=== PATIENT | female | born 1950 | race Caucasian/White ===

== ENCOUNTER 2023-02-07 15:10 | Emergency (ER) | payer BC, MEDICARE, SELFPAY ==
[2023-02-07 15:14] VITALS: BP 167/87; PULSE 93; RESP 16; TEMP 36.1; O2SAT 93; BMI 31.5
--- NOTE | 2023-02-07 15:14 | ED.FALL ---
HPI - Fall General Chief Complaint: Head Injury Stated Complaint: fall/ head injury Time Seen by Provider: 02/07/23 15:19 Source: patient Mode of arrival: ambulatory Limitations: no limitations History of Present Illness HPI Narrative: 72-year-old female previously healthy, not on any anticoagulation presents the ER after a trip and fall today at 11:00. Patient went to Urgent Care. She had a laceration over the right eye are eyebrow that was repaired. she was referred into the ER for imaging. Patient reports mild headache. She denies vomiting, dizziness,Neck pain, back pain, vision changes. Patient received tetanus shot prior to arrival. Related Data Allergies Allergy/AdvReac Type Severity Reaction Status Date / Time No Known Allergies Allergy Verified 02/07/23 15:14 Review of Systems Review of Systems: Yes all other systems are reviewed and are negative Constitutional: Constitutional: Reports no additional constitutional complaints, Denies body ache(s), Denies chills, Denies fever(s), Reports headache(s) and Denies weakness Eyes: Eyes: Reports no additional eye complaints and Denies change in vision ENT: Reports system reviewed and no additional complaints, except as documented, Denies dizziness, Reports headache(s), Denies nasal congestion, Denies nasal discharge and Denies neck pain Cardiovascular: Cardiovascular: Reports no additional cardiovascular complaints, Denies chest pain, Denies leg edema and Denies dyspnea Respiratory: Respiratory: Reports no additional respiratory complaints, Denies cough and Denies dyspnea Gastrointestinal: Gastrointestinal: Reports no additional gastrointestinal complaints, Denies abdominal pain, Denies diarrhea, Denies nausea and Denies vomiting Genitourinary: Genitourinary: Reports no additional female genitourinary complaints and Denies urinary incontinence Musculoskeletal: Musculoskeletal: Reports no additional musculoskeletal complaints, Denies back pain, Denies arthralgias, Denies joint swelling, Denies neck pain, Denies numbness and Denies tingling Integumentary/Breasts: Skin/Breast: Reports system reviewed and no additional complaints, except as docu and Denies rash Neurologic: Reports system reviewed and no additional complaints, except as documented, Denies Abnormal speech present, Denies dizziness, Reports headache(s), Denies numbness, Denies tingling and Denies weakness [facility] Past Medical History Attestation statement: The following information was validated with the patient. Source: old records reviewed and nursing notes reviewed Social History Social History Alcohol intake: never Smoked in Last 30 Days: No Use of substances other than those prescribed or required for medical reasons: No Advance Directives: No Advance Directives Information Provided: No Physical Exam Vital Signs: Vital Signs: Last Vital Signs Temp 97 F 02/07/23 15:14 Pulse 90 02/07/23 16:48 Resp 16 02/07/23 16:48 BP 134/80 02/07/23 16:48 Pulse Ox 96 02/07/23 16:48 O2 Del Method Room Air 02/07/23 16:48 BMI result Body Mass Index 31.5 Const: General: cooperative, healthy appearing, comfortable and no acute distress Orientation/consciousness: patient oriented x3 Limitations: no limitations HEENT: Head: Yes normal to inspection, No Vallejo's sign and No raccoon eyes Head images: 1. there is a 5 cm laceration above the right eyebrow. There is slight dehiscence of the wound Ears: hearing grossly normal bilaterally and TM's normal bilaterally General nose exam: Normal external nose present Face and sinus: Yes normal facial exam Mouth: Normal oral and palatal mucosa present Throat: Yes posterior oropharynx normal Eyes: General: appearance normal, both eyes and all related structures Pupils: Equal, round and reactive pupils present Neck: Other: No midline tenderness, step-offs deformities Neck: Yes normal visual inspection, Yes full ROM and Yes no lymphadenopathy Chest: Chest palpation & inspection: normal inspection of the chest Resp: Effort & Inspection: normal respiratory effort Auscultation: clear to auscultation bilaterally Cardio: Rate: regular rate Rhythm: regular rhythm Peripheral pulses: Peripheral pulses 2+ throughout GI: Inspection: Yes normal to inspection Palpation (GI): Soft to palpation and nontender Auscultation: normal bowel sounds Back/Spine/Pelvis: Thoracic/Lumbar Spine: thoracic and lumbar spine normal to inspection Skin: General skin exam: no rashes or lesions noted Neuro: General: patient oriented x3, moves all extremities, no focal motor deficits and normal sensation to monofilament Cranial nerves: Yes CN's II-XII intact bilaterally, Yes Equal, round and reactive pupils present, Yes Bilaterally intact EOM present, Yes Nystagmus not present, Yes Normal facial strength present and Yes Midline tongue present Cognition (Neuro): normal cognition Speech: No Abnormal speech present Gait exam (Neuro): Normal gait present Motor exam (neuro): 5/5 motor strength present throughout Sensory Exam: Normal double simultaneous stimulation for sensation Extrem: General: Yes normal to inspection Course Course Course Narrative: RME: 72yo F w/ no sig PMHx presenting to the ED c/o laceration to right upper eyebrow s/p mechanical trip and fall a grocery store around 11:00. Patient reports she fell in the rain, glasses hit face, denies LOC. Patient was seen at Urgent Care [employer] [employer] and had wound repaired, but was sent to ED for CT scans. Denies taking anticoagulation 3 cm linear laceration noted to right eyebrow, mostly closed however easily separable, appears internal suture was placed. Will need reinforcement Head/C-spine CT ordered Full HPI, ROS and PE to be performed by primary ED provider. Reevaluation(s) Reevaluation #1: CT head and cervical spine are negative for any acute finding. Patient will be discharged home with head injury instructions and return precautions. Reviewed worrisome signs and symptoms of when to return to the emergency room. Comfortable plan for discharge home. Medical Decision Making Medical Decision Making [facility] Narrative: this is a 72-year-old female who had a mechanical fall at 11:00 this morning with head strike. There was no loss of consciousness. She was seen at urgent care and had sutures placed but was referred here for imaging. Patient has complaints of mild headache within normal neurological exam and no focal findings. There is no history of FLORECITA therapy use. On exam patient has a approximately 5 cm laceration over the right eyebrow that has slight dehiscence noted. I did review the records from the urgent care. It appears that they placed 4.0 dissolvable sutures subcutaneously. I will reinforce the wound with skin glue and Steri-Strips patient will have a CT head and CT cervical spine due toage Differential Diagnosis Differential Diagnoses: The differential diagnosis associated with the presentation includes low concern for basilar skull fracture, intracranial hemorrhage Consider contusion, laceration, concussion Independent Interpretation I performed an independent interpretation of an: CT Scan Interpretation: I independently reviewed CT scan agree with radiology report Radiology Impression Discussion of test interpretation with radiology: I have reviewed the radiologist's reading. Radiologist Impression: [address] [address] [address] Scan Report Signed Patient: Nely Luciano MR#: [id number] : 1950 Acct:[id number] Age/Sex: 72 / F ADM Date: 02/07/23 Loc: HO.ED Attending Dr: Ordering Physician: Winter Castillo Date of Service: 02/07/23 Procedure(s): CT head/brain wo IV con Accession Number(s): [id number] cc: Winter Castillo~ EXAM: Noncontrast CT scan of the head and cervical spine. INDICATION: Fall with head strike COMPARISON: None available TECHNIQUE: Axial slices were obtained from skull base to vertex and displayed. This was followed by helical, multislice, multidetector axial images from the occiput to the upper thorax. Coronal and sagittal reformats of the cervical spine in addition to coronal reformats of the head were obtained at the technologist workstation. DLP: 1238 mGy-cm FINDINGS: HEAD: There is no evidence of acute intracranial hemorrhage or territorial infarction.? No abnormal mass effect or midline shift is appreciated. Gong-white differentiation is well preserved.? No extra-axial fluid collections. The ventricular system and cortical sulci are prominent, consistent with age-appropriate volume loss.? Mild cerebellar volume loss is also appreciated. There are areas of low density in the periventricular and subcortical white matter, most consistent with sequelae of microvascular ischemic change.? Hyperostosis frontalis. No acute osseous fracture. There is mild to moderate calcifications of the cavernous internal carotid arteries. Mild mucosal thickening of a few ethmoid air cells in addition to the maxillary sinuses. Other paranasal sinuses and mastoid air cells are well aerated. SPINE: There is reversal of the normal cervical lordosis. Also noted is mild anterolisthesis of C3 on C4 and C4 on C5. Normal C1/2 articulation. Cervical vertebral body heights are maintained. There is mild to moderate narrowing of the C5/6 and C6/7 disc space heights. Small to moderate-sized osteophytes are also present particularly within the mid to lower cervical spine. There are degenerative changes of the posterior elements of the mid to lower cervical spine. There is moderate bilateral facet hypertrophy diffusely. Visualized lung apices are well aerated. CT/CT head/brain wo IV con IMPRESSION: 1.? No acute intracranial pathology. 2.? No fractures or dislocations of the cervical spine. ? Discharge Plan Discharge Clinical Impression: Face lacerations Patient Disposition: Home, Self-Care Instructions: Laceration (ED), Skin Adhesive Care (ED), Steristrips (ED) Additional Instructions: tried to leave the Steri-Strips in place for few days the the wound may heal Return for severe headache, vomiting, change in behavior take Motrin or Tylenol if able as needed for pain Referrals: Physician,None [Primary Care Provider] - 1 week Interventions: ED Discharge Assessment Last Done: 02/07/23 16:48 Discharge Date/Time: 02/07/23 16:49
[2023-02-07 16:48] VITALS: BP 134/80; PULSE 90; RESP 16; O2SAT 96
== END 2023-02-07 16:49 | disposition home or self-care (01) ==
PROVIDERS: Emergency Provider Emergency Medicine Emergency Medical Services
DX: R51.9 Headache, unspecified (principal); S01.111A Laceration without foreign body of right eyelid and periocular area, initial encounter; W19.XXXA Unspecified fall, initial encounter; Y93.9 Activity, unspecified; Y92.9 Unspecified place or not applicable; Y99.9 Unspecified external cause status
CPT/HCPCS: 70450; 72125; 99284

== ENCOUNTER 2024-02-06 07:36 | Emergency (ER) | payer BC, SELFPAY ==
--- NOTE | ~2024-02-06 | XR_ITS ---
EXAMINATION: XR KNEE, LEFT CLINICAL INFORMATION: Knee pain COMPARISON: None available. TECHNIQUE: Four views of the left knee. FINDINGS: There is moderate narrowing of the medial joint space with marginal spurring. Moderate patellofemoral degenerative changes noted. Diffuse osteopenia. No fracture, dislocation or destructive lesion or joint effusion. XR/XR knee LT 2V IMPRESSION: Multi compartmental degenerative change but no acute findings.
[2024-02-06 07:39] VITALS: BP 178/85; PULSE 80; TEMP 36.8; O2SAT 97; BMI 31.8
--- NOTE | 2024-02-06 08:23 | ED_ITS ---
HPI - Extremity Injury (Lower) General Chief Complaint: Extremity Injury, Lower Stated Complaint: Fall/L knee inj Time Seen by Provider: 02/06/24 07:43 Source: patient Mode of arrival: ambulatory Limitations: no limitations History of Present Illness ED Provider: URBAN ZAMBRANO Narrative: 73 yo female who reports not on thinners and no sig PMH here with c/o falling onto L knee about 1 week ago no other trauma and now has pain with clicking and walking. No numbness, weakness. Has no PCP to see did not get xrays yet no prior injury to this knee MD complaint: knee injury Onset (ago): week(s) (1) Injury: Left: knee Type of Injury: blunt Place: home Severity: moderate Relieving factors: immobilization Exacerbating factors: other (walking) Context: direct blow Associated symptoms: swelling Other symptoms: none Related Data Previous Rx's ?Medication ?Instructions ?Recorded diclofenac sodium 1 % topical gel 2 g topical QID #100 grams 02/06/24 (Voltaren Arthritis Pain) Allergies Allergy/AdvReac Type Severity Reaction Status Date / Time No Known Allergies Allergy Verified 02/06/24 07:41 Review of Systems Review of Systems: Constitutional : No Fever, No Chills ENT/Mouth : No Ear Pain, No Hoarseness, No sore throat Eyes: No Eye Pain, No Swelling, No Redness, No Foreign Body Cardiovascular : No Chest Pain, No SOB Respiratory : No Cough, No Dyspnea Gastrointestinal : No Nausea, No Vomiting, No Diarrhea, No abdominal Pain Genitourinary : No Dysuria, No Hematuria Musculoskeletal : positive joint pain, No Myalgias, pos Joint Swelling Skin : No Skin lacerations, No rash Neuro : No Weakness, No Numbness, No Loss of Consciousness, No Dizziness, No Headache Psych : No Anxiety/Panic, No Depression All other systems reviewed and are negative PMFSH Past Medical History Attestation statement: The following information was validated with the patient. Source: old records reviewed Medical History No pertinent past medical history Social History Social History (Updated 02/06/24 @ 08:35 by Aleyda Acevedo DO) Alcohol intake: never Patient Tobacco Use Status: Never used Tobacco Advance Directives: Yes Advance Directives Information Provided: Yes Advance Directives on File: No Physical Exam Vital Signs: Vital Signs: Last Vital Signs Temp 98.3 F 02/06/24 07:39 Pulse 80 02/06/24 07:39 BP 178/85 H 02/06/24 07:39 Pulse Ox 97 02/06/24 07:39 O2 Del Method Room Air 02/06/24 07:39 BMI result Body Mass Index 31.8 Appearance: Alert. Oriented X3. No acute distress. Eyes: Pupils equal, round and reactive to light. ENT: Pharynx normal. Neck: Normal inspection. Neck supple. CVS: Normal heart rate and rhythm. Pulses normal. Respiratory: No respiratory distress. Breath sounds normal. Abdomen: Soft and nontender. Skin: Skin warm and dry. Normal skin color. Normal skin turgor. Extremities: No lower extremity edema. L knee small to mod joint effusion ttp anteriorly Neuro: Oriented X 3. No motor deficit. No sensory deficit. Medical Decision Making Medical Decision Making [facility] Narrative: 73 yo female with direct blow to L knee one week ago now with c/o pain with walking on that knee she has small effusion noted - at this time xrays for fracture ordered aware she will likely need MRI if fracture not noted - will refer to ortho she is NV intact Differential Diagnosis Differential Diagnoses: The differential diagnosis associated with the presentation includes internal injury, strain, fracture Lab Data [facility] Lab Attestation statement: I reviewed the patient's lab results. Independent Interpretation I performed an independent interpretation of an: Plain X-Ray Radiology Impression Discussion of test interpretation with radiology: I have reviewed the radiologist's reading. Prescription Management I considered prescription management with: Other Discharge Plan Discharge Clinical Impression: Effusion, left knee Left knee sprain Qualifiers: Encounter type: initial encounter Involved ligament of knee: unspecified ligament Qualified Code(s): S83.92XA - Sprain of unspecified site of left knee, initial encounter Patient Disposition: Home, Self-Care Instructions: Knee Sprain (ED), Swollen Knee Joint (ED) Additional Instructions: follow up with orthopedics you will most likely need MRI return for worsening pain swelling redness or any other concerns. FINDINGS: There is moderate narrowing of the medial joint space with marginal spurring. Moderate patellofemoral degenerative changes noted. Diffuse osteopenia. No fracture, dislocation or destructive lesion or joint effusion. XR/XR knee LT 2V IMPRESSION: Multi compartmental degenerative change but no acute findings Prescriptions: New diclofenac sodium [Voltaren Arthritis Pain] 1 % gel 2 g topical QID Qty: 100 0RF Rx Instructions: apply to single elbow, wrist or hand; for hand includes palm/fingers/back of hand Referrals: Luke Yu PA-C [Physician [employer]] - (call to schedule appointment) Print Language: Tristanian
[2024-02-06 09:43] VITALS: BP 153/85; PULSE 82; RESP 18; TEMP 37.1; O2SAT 98
== END 2024-02-06 09:45 | disposition home or self-care (01) ==
PROVIDERS: Emergency Provider Emergency Medicine
DX: M25.462 Effusion, left knee (principal); M25.562 Pain in left knee; S83.92XA Sprain of unspecified site of left knee, initial encounter; W18.30XA Fall on same level, unspecified, initial encounter; Y93.9 Activity, unspecified; Y92.9 Unspecified place or not applicable; Y99.9 Unspecified external cause status
CPT/HCPCS: 73560; 99282; 99283

== ENCOUNTER 2024-03-08 07:59 | Outpatient (AMB) | payer BC, SELFPAY ==
--- NOTE | 2024-03-08 08:09 | MHC.OFFVIS ---
Intake Visit Reasons: New Pt - left knee pain Intake Note: Nely a 74 year old female who presents today for a new patient evaluation of left knee pain. Patient reports her pain has been present for about a month ago that has been getting worse. Her pain started after she fell on her knee a the top of stairs. She presented to at [facility] where xrays were taken and referred to orthopedics. Currently her pain presents with ambulation and is located at the anterior aspect of knee. She complains of clicking with ambulation. Denies numbness or tingling. No relief with prescribed topical cream. Allergies No Known Allergies Allergy (Verified 03/08/24 08:09) Medication List - Last Reconciled 03/08/24 by Luke Yu PA-C diclofenac sodium 1% (Voltaren Arthritis Pain) 2 grams topical QID HPI HPI New Pt - left knee pain: Details: Nely is a 74-year-old female who presents today as a new patient for an evaluation of left knee pain. She states that a month ago, she started experiencing pain and stiffness, and it has been getting worse. She describes that she landed on her knee after falling from the top of the stairs. She has been experiencing pain with ambulation and is located at the anterior aspect of her left knee. After being evaluated at [facility], x-rays were done and referred to the orthopedics. She finds no relief with prescribed topical cream. She denies numbness or tingling. [facility] Medical History No pertinent past medical history Social History Alcohol intake: never Patient Tobacco Use Status: Never used Tobacco Review of Systems Const All systems reviewed & are unremarkable except as noted in HPI and below Physical Exam Const General: cooperative, healthy appearing, comfortable and no acute distress Orientation/consciousness: patient oriented x3 Neck Neck: Yes normal visual inspection and Yes no JVD Chest Chest palpation & inspection: normal inspection of the chest Resp Effort & Inspection: normal respiratory effort Auscultation: clear to auscultation bilaterally, crackles (no), rales (no), rhonchi (no) and wheezes (no) Cardio Jugular venous distension: no JVD Rate: regular rate Rhythm: regular rhythm Heart sounds: S1 normal heart sound present, S2 normal heart sound present, Murmur heart sound present (no) and Rub heart sound present (no) Neuro General: patient oriented x3 Extrem Other: Left knee: Skin intact, no erythema or joint effusion. Tenderness along the medial and lateral joint line. Full ROM with crepitus. Negative Rowena?s. No ligamentous laxity. NVI. General: Yes normal to inspection, Yes no pedal edema and Yes no calf tenderness Psych Appearance: grossly normal Mental Status: mental status grossly normal Speech and movement: Normal speech and movement present Office Procedures Joint Injection/Aspiration Joint Injection/Aspiration Primary Site: left knee Prep: site was prepped using aseptic technique, ethochloride spray was applied and injection warnings given Injected: 80 mg of, DepoMedrol, with 8 mL of, 1% plain lidocaine and in the joint Approach Used: anterolateral Procedure: The patient tolerated the procedure well and there was some relief with the local anesthesia Coding 25053 - Glenohumeral/Tronchanteric Bursa/Intraarticular Procedure code (CPT) selection complete Results Reviewed Results Reviewed: Xrays were obtained in the office today and personally reviewed by me of the left knee show severe tricompartmental oa Assessment & Plan Assessment & Plan (1) Osteoarthritis of left knee: Code(s): M17.12 - Unilateral primary osteoarthritis, left knee Category: Medical Plan We discussed options today, which include cortisone injection. The patient did consent to move forward with the left knee cortisone injection, which was tolerated well. I recommended rest, ice, and elevation and OTC anti-inflammatories as needed for discomfort. If symptoms persist over the next 6-8 weeks, they will contact the office, otherwise as needed. Orders: Orders XR knee LT 1V Today M25.562 - Pain in left knee Patient Instructions: Scribed for Luke Yu PA-C, by evangelina Samuels scribe, on 03/08/2024 at 8:00 AM EST. ILuke PA-C, have personally reviewed and agree with the information entered by the scribe. Coding Level of Care Code New Pt Level 3 (46716) Diagnoses Osteoarthritis of left knee M17.12 CPT Codes Coding - Joint 7: 93771 - Glenohumeral/Tronchanteric Bursa/Intraarticular ([id number])
== END 2024-03-08 08:42 | disposition home or self-care (01) ==
PROVIDERS: Visit Provider Physician Assistant
DX: M17.12 Unilateral primary osteoarthritis, left knee (principal)
CPT/HCPCS: 20610; 99203

== ENCOUNTER 2024-03-08 07:59 | Outpatient (REF) | payer BC, SELFPAY ==
--- NOTE | ~2024-03-08 | XR_ITS ---
EXAMINATION: XR KNEE, RIGHT CLINICAL INFORMATION: Pain. COMPARISON: February 06, 2024. TECHNIQUE: Four views of the right knee. FINDINGS: Left knee: Diffuse demineralization. Moderate narrowing of the medial compartment with marginal spurring. Moderate degenerative changes in the patellofemoral joint. Right knee: Mild narrowing of the medial compartment of the right knee. XR/XR knee LT 1V IMPRESSION: [id number]-[id number]-tocsrihd degenerative changes.
--- NOTE | ~2024-03-08 | XR_ITS ---
EXAMINATION: XR KNEE, RIGHT CLINICAL INFORMATION: Pain. COMPARISON: February 06, 2024. TECHNIQUE: Four views of the right knee. FINDINGS: Left knee: Diffuse demineralization. Moderate narrowing of the medial compartment with marginal spurring. Moderate degenerative changes in the patellofemoral joint. Right knee: Mild narrowing of the medial compartment of the right knee. XR/XR knee RT 2V IMPRESSION: Ryjg-nf-eeahiixr degenerative changes.
== END 2024-03-08 08:00 | disposition home or self-care (01) ==
LOC: HO.HOSX 07:59
PROVIDERS: Visit Provider Physician Assistant
DX: M17.12 Unilateral primary osteoarthritis, left knee (principal); M25.561 Pain in right knee
CPT/HCPCS: 20610; 73560; J1010

== ENCOUNTER 2024-04-17 13:33 | Outpatient (AMB) | payer BC, SELFPAY ==
--- NOTE | 2024-04-17 13:40 | MHC.OFFVIS ---
Intake Visit Reasons: OV- Left Knee Pain, no relief from inj Intake Note: Nely a 74 year old female who presents today for a follow up of left knee pain, last injection 03/08/24. Patient reports injection did not provide her with any relief. She is interested in discussing gel injections. Finds no relief with Tylenol or Motrin. Allergies No Known Allergies Allergy (Verified 04/17/24 14:10) Medication List - Last Reconciled 04/17/24 by Luke Yu PA-C diclofenac sodium 1% (Voltaren Arthritis Pain) 2 grams topical QID HPI HPI OV- Left Knee Pain, no relief from inj: Details: 74-year-old female who returns to the office today for a follow-up of left knee pain. She had her last injection on 03/08/24 which did not provide her any relief. She finds no relief with Tylenol or Motrin. [facility] Medical History No pertinent past medical history Social History Alcohol intake: never Patient Tobacco Use Status: Never used Tobacco Review of Systems Const All systems reviewed & are unremarkable except as noted in HPI and below Physical Exam Extrem Other: Left knee: Skin intact, no erythema or joint effusion. Tenderness along the medial and lateral joint line. Full ROM with crepitus. Negative Rowena?s. No ligamentous laxity. NVI. ? Assessment & Plan Assessment & Plan (1) Osteoarthritis of left knee: Code(s): M17.12 - Unilateral primary osteoarthritis, left knee Category: Medical Plan We will get a prior authorization for left knee gel injection. We will also set him up for a medial unloading brace that is a custom knee brace. Once this is set up, we will call for the gel injection which she is content with. Patient Instructions: Scribed for Luke Yu PA-C, by Duncan Hinton director of medical staff services, on 04/07/2024 at 1:00 PM EST.? I, Luke Yu PA-C, have personally reviewed and agree with the information entered by the scribe. Coding Level of Care Code Est Pt Level 3 (68892) Complex EM visit Add On G2211 Diagnoses Osteoarthritis of left knee M17.12
== END 2024-04-17 14:46 | disposition home or self-care (01) ==
PROVIDERS: Visit Provider Physician Assistant
DX: M17.12 Unilateral primary osteoarthritis, left knee (principal)
CPT/HCPCS: 99213

== ENCOUNTER → 2024-04-17 13:33 | Outpatient (BNVA) | payer BC, SELFPAY | PROVIDERS: Visit Provider Physician Assistant ==

== ENCOUNTER 2024-05-02 14:42 | Outpatient (AMB) | payer BC, SELFPAY ==
--- NOTE | 2024-05-02 15:07 | A.OFFVIS_ITS ---
Vital Signs 05/02/24 15:08 Height 5 ft 4 in Weight 185 lb BMI 31.8 Intake Visit Reasons: Inj- Lt knee Gel-One injection Intake Note: Nely a 74 year old female who presents today for a left knee Gel-One injection. Allergies No Known Allergies Allergy (Verified 05/02/24 15:08) Medication List - Last Reconciled 05/02/24 by Luke Yu PA-C diclofenac sodium 1% (Voltaren Arthritis Pain) 2 grams topical QID HPI HPI Inj- Lt knee Gel-One injection: Details: 74-year-old female who returns to the office today for a left knee Gel One injection. [facility] Medical History No pertinent past medical history Social History Alcohol intake: never Patient Tobacco Use Status: Never used Tobacco Review of Systems Const All systems reviewed & are unremarkable except as noted in HPI and below Physical Exam Vital Signs: BMI result Body Mass Index 31.8 Extrem Other: Left knee: Skin intact, no erythema or joint effusion. Tenderness along the medial and lateral joint line. Full ROM with crepitus. Negative Rowena?s. No ligamentous laxity. NVI. ? Office Procedures Joint Injection/Aspiration Joint Injection/Aspiration Details: gel one injection Primary Site: left knee Prep: site was prepped using aseptic technique, ethochloride spray was applied and injection warnings given Injected: in the joint Approach Used: anterolateral Procedure: The patient tolerated the procedure well Coding 04822 - Glenohumeral/Tronchanteric Bursa/Intraarticular Procedure code (CPT) selection complete Assessment & Plan Assessment & Plan (1) Osteoarthritis of left knee: Code(s): M17.12 - Unilateral primary osteoarthritis, left knee Category: Medical Plan We discussed options today, which include Gel One injection. The patient did consent to move forward with the left knee Gel One injection, which was tolerated well. I recommended rest, ice, and elevation and OTC anti- inflammatories as needed for discomfort. If symptoms persist or worsen over the next 6-8 weeks, patient will contact the office, otherwise follow-up as needed. ? Patient Instructions: Scribed for Luke Yu PA-C, by Duncan Hinton medical laboratory technical officer, on 05/02/2024 at 2:45 PM EST.? I, Luke Yu PA-C, have personally reviewed and agree with the information entered by the scribe. Coding Level of Care Code Procedure Only Diagnoses Osteoarthritis of left knee M17.12 CPT Codes Coding - Joint 7: 67108 - Glenohumeral/Tronchanteric Bursa/Intraarticular ([id number])
[2024-05-02 15:08] VITALS: BMI 31.8
== END 2024-05-02 15:24 | disposition home or self-care (01) ==
LOC: HO.HOS 14:42
PROVIDERS: Visit Provider Physician Assistant
DX: M17.12 Unilateral primary osteoarthritis, left knee (principal)
CPT/HCPCS: 20610

== ENCOUNTER → 2024-05-02 14:42 | Outpatient (BNVA) | payer BC, SELFPAY | PROVIDERS: Visit Provider Physician Assistant | DX: M17.12 Unilateral primary osteoarthritis, left knee (principal) | CPT/HCPCS: 20610; J7326 ==

== ENCOUNTER 2024-05-27 09:30 | Outpatient (AMB) | payer BC, SELFPAY ==
--- NOTE | 2024-05-27 09:38 | A.OFFVIS_ITS ---
Vital Signs 05/27/24 09:42 Height 5 ft 4 in Weight 185 lb BMI 31.8 Intake Visit Reasons: OV, L knee pain, gel inj 05/02/24 cont pain Intake Note: Nely is a 74 year old female who presents to the office today for L knee pain, gel inj 05/02/24 with continued pain. Patient reports no relief with cortisone or gel injections. She would like to discuss her options today. Allergies No Known Allergies Allergy (Verified 05/27/24 09:42) HPI HPI OV, L knee pain, gel inj 05/02/24 cont pain: Details: 74-year-old female who returns to the office today for a follow-up of left knee pain. She continues to have pain in her knee. She had her last gel injection on 05/02/24. She reports she had no relief with cortisone or gel injections. She continues to have pain with walking long distances and getting up out of a chair. Pain with stairs. [facility] Medical History No pertinent past medical history Social History Alcohol intake: never Patient Tobacco Use Status: Never used Tobacco Review of Systems Const All systems reviewed & are unremarkable except as noted in HPI and below Physical Exam Vital Signs: BMI result Body Mass Index 31.8 Extrem Other: Left knee: Skin intact, no erythema or joint effusion. Tenderness along the medial and lateral joint line. Full ROM with crepitus. Negative Rowena?s. No ligamentous laxity. NVI. ? Assessment & Plan Assessment & Plan (1) Osteoarthritis of left knee: Code(s): M17.12 - Unilateral primary osteoarthritis, left knee Category: Medical Plan We discussed options today which include repeat steroid and gel injection vs surgical intervention. She would like to hold off on surgical intervention at this time. I did give her a prescription for Celebrex to take twice a day for 2 weeks and then as needed. She would like to reattempt gel injection however she would like to try Euflexxa injection rather than the single injection she took last time which provided her no relief. We will have the office contact her once she is approved for gel injections. She will see me back as planned. Medications: New celecoxib (Celebrex) 200 mg PO BID 60 caps 3RF 30 days Patient Instructions: Scribed for Luke Yu PA-C, by Duncan Hinton, durable medical equipment technician, on 05/27/2024 at 9:30 AM EST.? I, Luke Yu PA-C, have personally reviewed and agree with the information entered by the scribe. Coding Level of Care Code Est Pt Level 3 (52477) Complex EM visit Add On G2211 Diagnoses Osteoarthritis of left knee M17.12
[2024-05-27 09:42] VITALS: BMI 31.8
== END 2024-05-27 11:26 | disposition home or self-care (01) ==
PROVIDERS: Visit Provider Physician Assistant
DX: M17.12 Unilateral primary osteoarthritis, left knee (principal)
CPT/HCPCS: 99214

== ENCOUNTER → 2024-05-27 09:30 | Outpatient (BNVA) | payer BC, SELFPAY | PROVIDERS: Visit Provider Physician Assistant ==

== ENCOUNTER 2024-06-24 09:32 | Outpatient (AMB) | payer BC, SELFPAY ==
--- NOTE | 2024-06-24 09:40 | A.OFFVIS_ITS ---
Intake Visit Reasons: inj- LT knee Supartz #1 Intake Note: Nely a 74 year old female who presents today for a left knee Supartz injection #1. Allergies No Known Allergies Allergy (Verified 06/24/24 09:40) Medication List - Last Reconciled 06/24/24 by Luke Yu PA-C celecoxib (Celebrex) 200 mg PO BID 30 days diclofenac sodium 1% (Voltaren Arthritis Pain) 2 grams topical QID HPI HPI inj- LT knee Supartz #1: Details: 74-year-old female returns to the office today for pain in the left knee. She has had gel injections in the past and presents today for 1. Supartz. [facility] Medical History No pertinent past medical history Social History Alcohol intake: never Patient Tobacco Use Status: Never used Tobacco Review of Systems Const All systems reviewed & are unremarkable except as noted in HPI and below Physical Exam Extrem Other: Left knee: Skin intact, no erythema or joint effusion. Tenderness along the medial and lateral joint line. Full ROM with crepitus. Negative Rowena?s. No ligamentous laxity. NVI. ? Office Procedures AMB Joint Injection/Aspiration Joint Injection/Aspiration Details: 1. Supartz Primary Site: left knee Prep: site was prepped using aseptic technique, ethochloride spray was applied and injection warnings given Injected: in the joint Approach Used: anterolateral Procedure: The patient tolerated the procedure well Coding 07567 - Glenohumeral/Tronchanteric Bursa/Intraarticular Procedure code (CPT) selection complete Assessment & Plan Assessment & Plan (1) Osteoarthritis of left knee: Code(s): M17.12 - Unilateral primary osteoarthritis, left knee Category: Medical Plan: We discussed options today, which include steroid injection. The patient did consent to move forward with #1 supartz injection, which was tolerated well.? I recommended rest, ice and elevation and OTC antiinflammatories prn for discomfort. Patient will return in 1 week for #2. Injection Coding Level of Care Code Procedure Only Diagnoses Osteoarthritis of left knee M17.12 CPT Codes Coding - Joint 7: 54694 - Glenohumeral/Tronchanteric Bursa/Intraarticular ([id number])
== END 2024-06-24 09:51 | disposition home or self-care (01) ==
PROVIDERS: Visit Provider Physician Assistant
DX: M17.12 Unilateral primary osteoarthritis, left knee (principal)
CPT/HCPCS: 20610

== ENCOUNTER → 2024-06-24 09:32 | Outpatient (BNVA) | payer BC, SELFPAY | PROVIDERS: Visit Provider Physician Assistant | DX: M17.12 Unilateral primary osteoarthritis, left knee (principal) | CPT/HCPCS: 20610; J7321 ==

== ENCOUNTER 2024-07-01 09:24 | Outpatient (AMB) | payer BC, SELFPAY ==
--- NOTE | 2024-07-01 09:26 | MHC.OFFVIS ---
Intake Visit Reasons: inj- LT knee Supartz #2 Intake Note: Nely a 74 year old female who presents today for a left knee Supartz injection #2. Allergies No Known Allergies Allergy (Verified 07/01/24 09:34) Medication List - Last Reconciled 07/01/24 by Luke Yu PA-C celecoxib (Celebrex) 200 mg PO BID 30 days diclofenac sodium 1% (Voltaren Arthritis Pain) 2 grams topical QID HPI HPI inj- LT knee Supartz #2: Details: 74-year-old female who returns to the office today for a left knee Supartz injection #2. [facility] Medical History No pertinent past medical history Social History Alcohol intake: never Patient Tobacco Use Status: Never used Tobacco Review of Systems Const All systems reviewed & are unremarkable except as noted in HPI and below Physical Exam Extrem Other: Left knee: Skin intact, no erythema or joint effusion. Tenderness along the medial and lateral joint line. Full ROM with crepitus. Negative Rowena?s. No ligamentous laxity. NVI. ? Office Procedures AMB Joint Injection/Aspiration Joint Injection/Aspiration Details: #2 supartiz Primary Site: left knee Prep: site was prepped using aseptic technique, ethochloride spray was applied and injection warnings given Injected: in the joint Approach Used: anterolateral Procedure: The patient tolerated the procedure well Coding 21381 - Glenohumeral/Tronchanteric Bursa/Intraarticular Procedure code (CPT) selection complete Assessment & Plan Assessment & Plan (1) Osteoarthritis of left knee: Code(s): M17.12 - Unilateral primary osteoarthritis, left knee Category: Medical Plan We discussed options today, which include Supartz injection. The patient did consent to move forward with the left knee Supartz injection #2, which was tolerated well. I recommended rest, ice, and elevation and OTC anti-inflammatories as needed for discomfort. she will follow-up in 1 week for left knee Supartz gel injection #3. Patient Instructions: Scribed for Luke Yu PA-C, by Duncan Hinton medical hospital sales, on 07/01/2024 at 9:30 AM EST.? I, Luke Yu PA-C, have personally reviewed and agree with the information entered by the scribe. Coding Level of Care Code Procedure Only Diagnoses Osteoarthritis of left knee M17.12 CPT Codes Coding - Joint 7: 28778 - Glenohumeral/Tronchanteric Bursa/Intraarticular ([id number])
== END 2024-07-01 09:41 | disposition home or self-care (01) ==
PROVIDERS: Visit Provider Physician Assistant
DX: M17.12 Unilateral primary osteoarthritis, left knee (principal)
CPT/HCPCS: 20610

== ENCOUNTER → 2024-07-01 09:24 | Outpatient (BNVA) | payer BC, SELFPAY | PROVIDERS: Visit Provider Physician Assistant | DX: M17.12 Unilateral primary osteoarthritis, left knee (principal) | CPT/HCPCS: 20610; J7321 ==

== ENCOUNTER 2024-07-15 10:10 | Outpatient (AMB) | payer BC, SELFPAY ==
--- NOTE | 2024-07-15 10:15 | MHC.OFFVIS ---
Intake Visit Reasons: inj- LT knee Supartz #3 Intake Note: Nely is a 74 year old female who presents today for a her 3rd Supartz gel injection for her left knee. Patient reports still having pain and hasn't noticed a difference in her pain yet. Allergies No Known Allergies Allergy (Verified 07/01/24 09:34) Medication List - Last Reconciled 07/15/24 by Luke Yu PA-C celecoxib (Celebrex) 200 mg PO BID 30 days diclofenac sodium 1% (Voltaren Arthritis Pain) 2 grams topical QID HPI HPI inj- LT knee Supartz #3: Details: 74-year-old female who returns to the office today for a left knee Supartz injection #3. [facility] Medical History No pertinent past medical history Social History Alcohol intake: never Patient Tobacco Use Status: Never used Tobacco Review of Systems Const All systems reviewed & are unremarkable except as noted in HPI and below Physical Exam Extrem Other: Left knee: Skin intact, no erythema or joint effusion. Tenderness along the medial and lateral joint line. Full ROM with crepitus. Negative Rowena?s. No ligamentous laxity. NVI. ? Office Procedures AMB Joint Injection/Aspiration Joint Injection/Aspiration Details: #3 euflexxa lt knee Primary Site: left knee Prep: site was prepped using aseptic technique, ethochloride spray was applied and injection warnings given Injected: in the joint Approach Used: anterolateral Procedure: The patient tolerated the procedure well Coding 20299 - Glenohumeral/Tronchanteric Bursa/Intraarticular Procedure code (CPT) selection complete Assessment & Plan Assessment & Plan (1) Osteoarthritis of left knee: Code(s): M17.12 - Unilateral primary osteoarthritis, left knee Category: Medical Plan We discussed options today, which include Supartz injection. The patient did consent to move forward with the left knee Supartz injection #3, which was tolerated well. I recommended rest, ice, and elevation and OTC anti-inflammatories as needed for discomfort. If symptoms persist or worsens over the next 6-8 weeks, patient will contact the office, otherwise follow-up as needed. Patient Instructions: Scribed for Luke Yu PA-C, by Duncan Hinton medical aide, on 07/15/2024 at 10:00 AM EST.? I, Luke Yu PA-C, have personally reviewed and agree with the information entered by the scribe. Coding Level of Care Code Procedure Only Diagnoses Osteoarthritis of left knee M17.12 CPT Codes Coding - Joint 7: 39215 - Glenohumeral/Tronchanteric Bursa/Intraarticular ([id number])
== END 2024-07-15 10:41 | disposition home or self-care (01) ==
LOC: HO.HOS 10:10
PROVIDERS: Visit Provider Physician Assistant
DX: M17.12 Unilateral primary osteoarthritis, left knee (principal)
CPT/HCPCS: 20610

== ENCOUNTER → 2024-07-15 10:10 | Outpatient (BNVA) | payer BC, SELFPAY | PROVIDERS: Visit Provider Physician Assistant | DX: M17.12 Unilateral primary osteoarthritis, left knee (principal) | CPT/HCPCS: 20610; J7321 ==

== ENCOUNTER 2025-05-01 11:36 | Outpatient (AMB) | payer BC, SELFPAY ==
--- NOTE | 2025-05-01 11:49 | A.OFFPC_ITS ---
Vital Signs 05/01/25 12:06 Height 5 ft 4 in Weight 242 lb 4 oz BMI 41.6 BP 130/78 Blood Pressure Location Lt brachial Position Sitting Pulse 82 Pulse Source Pulse Oximeter Temp 97.3 F Temp Source Temporal Artery Scan Pulse Oximetry (%) 96 Oxygen Delivery Method Room Air Intake Visit Reasons: new patient Intake Note: Patient is a new patient here to establish care for Heart murmur, left knee pain, Arthritis. Transferring care from Unknown . Medical records have not been requested and have not received. Boat Laborer Required: No Quill Winder: Present (Sister and daughter) Accompanied by: Sister Allergies No Known Allergies Allergy (Verified 05/01/25 12:06) Medication List - Last Reconciled 05/05/25 by Gama Eddy MD meloxicam 15 mg PO DAILY Tobacco use date assessed: 05/01/25 Fall risk assessment: No Falls in past year Last assessed Fall Risk: 05/01/25 Dental Screening Dental Screen Date: 05/01/25 Did you have a dental visit in the last 12 months?: Yes Did you have a dental problem in the last 6 months where you did not have access to dental care?: No Was dental information given to patient?: Patient has dentist HPI new patient HPI Details 75-year-old female presents to the [facility] to establish her care. Patient has never seen or had a primary care provider for many years. Currently on no medications and has had no blood work. She declines routine screening like mammogram or colonoscopy. Patient progressively started having right knee pain which has gotten worse over time. She has tried nonsteroidals, physical therapy and numerous intra- articular injections which have failed. She is now considered to be a candidate for right knee replacement. During her evaluation at the orthopedic surgeon a heart murmur was detected and was advised to find a primary care [facility] Medical History (Updated 05/05/25 @ 13:20 by Gama Eddy MD) Osteoarthritis of left knee Aortic stenosis No pertinent past medical history Surgical History (Updated 05/01/25 @ 12:13 by Cj Armendariz Marie) History of cholecystectomy Social History Housing: House Alcohol intake: never Patient Tobacco Use Status: Never used Tobacco e-Cigarette/Vaping Use: Never Used Second Hand Smoke Exposure: No service: No Current occupational status: retired Cognitive needs: No Hearing needs: No Vision needs: Yes (Glasses) Questionnaire PHQ-9 Over the last 2 weeks, how often have you been bothered by any of the following problems? 1. Little interest or pleasure in doing things: several days 2. Feeling down, depressed, or hopeless: several days 3. Trouble falling or staying asleep, or sleeping too much: not at all 4. Feeling tired or having little energy: several days 5. Poor appetite or overeating: not at all 6. Feeling bad about yourself - or that you are a failure or have let yourself or your family down: not at all 7. Trouble concentrating on things, such as reading the newspaper or watching television: not at all 8. Moving or speaking so slowly that other people could have noticed. Or the opposite - being so fidgety or restless that you have been moving around a lot more than usual: not at all 9. Thoughts that you would be better off or of hurting yourself in some way: not at all Total score: 3 Depression Screening Interpretation: Positive Depression Screening Done: Yes Source: Developed by Drs. Polo Nieto, Tere Brantley, Gabriel Lu and colleagues, with an educational sincere from [employer]. Thrive Questionnaire Date Thrive assessed: 05/01/25 I am a: Patient What is your living situation today?: I have a steady place to live Within the past 12 months, did the food you bought not last and you didn't have the money to get more?: Never true Within the past 12 months, did you worry whether your food would run out before you got money to buy more?: Never true Do you have trouble paying for medicines?: No Do you have trouble getting transportation to medical appointments?: No Do you have trouble paying your heating and electricity bill?: No Do you have trouble taking care of your child, family member or friend?: No Do you have trouble with day-to-day activities such as bathing, preparing meals, shopping, managing finances, etc.?: No Are you currently unemployed and looking for a job?: No Are you interested in more education?: No Please select the resources that you would like help with: None Currently or been in a relationship where the following occur: I choose not to answer THRIVE Score: 0 AUDIT C Alcohol Use Questionnaire (AUDIT-C) 1. How often do you have a drink containing alcohol?: Never 3. How often do you have six or more drinks on one occasion?: Never Total Score: 0 PENNY-7 AMB Questionnaire PENNY-7 Date PENNY - 7 assessed: 05/01/25 Feeling nervous, anxious, or on edge: 0 = Not at all Not being able to stop or control worryin = Not at all Worrying too much about different things: 0 = Not at all Trouble relaxin = Not at all Being so restless that it is hard to sit still: 0 = Not at all Becoming easily annoyed or irritable: 1 = Several days Feeling afraid as if something awful might happen: 0 = Not at all Total PENNY-7 score (0-4 normal; 5-9 mild; 10-14 moderate; 15-21 severe): 1 Source: Developed by Drs. Polo Nieto, Tere Brantley, Gabriel Lu and colleagues, with an educational sincere from [employer]. Physical exam (Primary Care) Vital Signs: Last Vital Signs Temp 97.3 F 05/01/25 12:06 Pulse 82 05/01/25 12:06 BP 130/78 05/01/25 12:06 Pulse Ox 96 05/01/25 12:06 Oxygen Delivery Method Room Air 05/01/25 12:06 BMI result Body Mass Index 41.6 Tobacco/Smoking Status: Tobacco use Status Tobacco use date assessed 05/01/25 05/01/25 12:08 Patient Tobacco Use Status Never used Tobacco 05/01/25 11:51 e-Cigarette/Vaping Use Never Used 05/01/25 12:08 PHQ-9: PHQ-9 Score PHQ-9: Total score 3 05/01/25 12:08 Depression Screening Interpretation: Positive Thrive Assessment: Date of Thrive Assessment Date Thrive assessed 05/01/25 05/01/25 12:08 Currently or been in a relationship where the following occur: I choose not to answer Const General: cooperative and healthy appearing Nutritional Appearance: well nourished Orientation/consciousness: patient oriented x3 Limitations: no limitations HENMT Head: Yes normal to inspection Eyes General: appearance normal, both eyes and all related structures Neck Neck: Yes normal visual inspection Chest Chest palpation & inspection: normal palpation of entire chest wall Resp Effort & Inspection: normal respiratory effort Cardio Other: S1, S2, ejection systolic murmur best heard at the apex radiating into the right carotid. Neuro General: patient oriented x3 Coding Level of Care Code New Pt Level 4 (31966) Complex EM visit Add On G2211 Diagnoses Aortic stenosis I35.0 Osteoarthritis of left knee M17.12 Assessment & Plan Assessment & Plan (1) Aortic stenosis: Code(s): I35.0 - Nonrheumatic aortic (valve) stenosis Category: Medical Plan: Patient reports she has had an echocardiogram at [facility]. I will try to obtain the record. A cardiology consult has been formally requested. Based on the results I will clear her for surgery. (2) Osteoarthritis of left knee: Code(s): M17.12 - Unilateral primary osteoarthritis, left knee Category: Medical Plan: Continue anti-inflammatories till a decision is made on her cardiac clearance. Orders: Referrals Cardiology Referral I35.0 - Nonrheumatic aortic (valve) stenosis Medications: New meloxicam 15 mg PO DAILY 14 tabs 0RF
[2025-05-01 12:06] VITALS: BP 130/78; PULSE 82; TEMP 36.3; O2SAT 96; BMI 41.6
== END 2025-05-01 12:56 | disposition home or self-care (01) ==
PROVIDERS: PCP Internal Medicine; Visit Provider Internal Medicine
DX: I35.0 Nonrheumatic aortic (valve) stenosis (principal); M17.12 Unilateral primary osteoarthritis, left knee

== ENCOUNTER 2025-05-08 14:02 | Outpatient (AMB) | payer BC, SELFPAY ==
--- NOTE | 2025-05-08 14:17 | A.OFFVIS_ITS ---
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 She has not seen a doctor in many years till recently. It seems that she was having any issues and was assessed by Orthopedic surgery. Due to heart murmur, she was referred for further evaluation including echocardiogram and that showed mode [id number] aortic stenosis. Patient does not recall having any cardiac issues in the past. No known coronary disease or myocardial infarction or cardiomyopathy. She has some limitations from need pain but otherwise she states she feels fine for the most part without any clear-cut shortness of breath or chest pains. No dizzy spells or syncopal episodes. However, daughter states that she had noted patient to be rather short of breath and feel congested at times. [facility] Medical History (Updated 05/08/25 @ 16:03 by Charbel Coulter MD) Osteoarthritis of left knee Aortic stenosis No pertinent past medical history Surgical History (Updated 05/01/25 @ 12:13 by Cj Armendariz [facility]) History of cholecystectomy Family History (Updated 05/08/25 @ 14:25 by Ange Corral) Mother No problems noted. Father Colon cancer Social History Housing: House Alcohol intake: never Patient Tobacco Use Status: Never used Tobacco e-Cigarette/Vaping Use: Never Used Second Hand Smoke Exposure: No service: No Current occupational status: retired Cognitive needs: No Hearing needs: No Vision needs: Yes (Glasses) Review of Systems Const Denies weakness ENT Denies dizziness Card Denies chest pain, Denies chest pain with activity, Denies syncope, Denies rapid heart rate, Denies pedal edema, Denies edema, Denies leg edema, Denies lightheadedness, Denies palpitations, Reports dyspnea, Reports dyspnea on exertion and Denies orthopnea Resp Denies cough, Reports dyspnea and Reports dyspnea on exertion GI Denies hematochezia and Denies change in stool character Musc Denies abnormal gait, Reports arthralgias, Reports joint swelling, Denies muscle cramps, Denies muscle weakness, Denies numbness, Denies radiating pain into limb and Denies tingling Neuro Denies abnormal gait, Denies dizziness, Denies syncope, Denies numbness, Denies tingling and Denies weakness Endo Denies palpitations Physical Exam Vital Signs: Last Vital Signs Pulse 84 05/08/25 14:18 BP 122/68 05/08/25 14:18 BMI result Body Mass Index 41.2 Const General: comfortable and no acute distress Orientation/consciousness: patient oriented x3 HEENT Other: Unremarkable Head: Yes normal to inspection Neck Neck: Yes normal visual inspection Chest Chest palpation & inspection: normal inspection of the chest Resp Auscultation: clear to auscultation bilaterally Cardio Palpation: normal PMI Heart sounds: S1 normal heart sound present, S2 normal heart sound present, no gallops, Murmur heart sound present systolic III/ and at the right sternal border and no rubs GI Palpation (GI): Soft to palpation Back/Spine/Pelvis Other: unremarkable Skin General skin exam: no rashes or lesions noted Neuro General: patient oriented x3 Extrem General: Yes normal to inspection Psych Mental Status: mental status grossly normal Office Procedures EKG Details: EKG with underlying sinus rhythm at 84/Min; supraventricular ectopy; [place] [id number]-Nozjahalmzovdwejr, Complete Assessment & Plan Assessment & Plan (1) Non-rheumatic aortic stenosis: Code(s): I35.0 - Nonrheumatic aortic (valve) stenosis Category: Medical (2) Preoperative cardiovascular examination: Code(s): Z01.810 - Encounter for preprocedural cardiovascular examination Category: Medical Plan Echocardiogram from [facility] reviewed. LVEF 60-65%. Left atrium severely dilated. Aortic leaflets thickened and calcified. Could not state if trileaflet or bicuspid. Mean gradient across the valve 41 mm Hg. Calculated valve area of 1.1 cm2 based on LVOT diameter of 2.3 cm. Overall, thought to be scoqyopj-[id number]-ndvnzd aortic stenosis. No aortic regurgitation. There was also severe mitral annular calcification with moderate mitral stenosis. Findings discussed with patient as well as her daughter over the phone. Patient herself denies any overt symptoms but daughter states that patient gets short of breath and congested at times. Hence she would like this further assessed without delay. Next step would be a diagnostic catheterization and evaluation for TAVR. She will need to see both Interventional Cardiology as well as cardiac surgeon. For the calcific mitral stenosis, no specific interventions at this time but we will need to just monitor. With regard to the knee surgery, we will need to hold off for now. For meds, at least start low-dose aspirin. Based on the extent of coronary disease we will plan on statins. Totally spent about 60 minutes reviewing records, discussion with the patient and family, documentation coordination of care. Orders: Orders Cardiac Cath LT Diagnostic Today I35.0 - Nonrheumatic aortic (valve) stenosis Coding Level of Care Code New Pt Level 5 (39674) Complex EM visit Add On G2211 Diagnoses Non-rheumatic aortic stenosis I35.0 Preoperative cardiovascular examination Z01.810 CPT Codes EKG - CPT: 31782-Yuppgrnovwnsamajp, Complete ([id number])
[2025-05-08 14:18] VITALS: BP 122/68; PULSE 84; BMI 41.2
== END 2025-05-08 15:07 | disposition home or self-care (01) ==
LOC: HO.HCS 14:03
PROVIDERS: PCP Internal Medicine; Visit Provider Internal Medicine
DX: I35.0 Nonrheumatic aortic (valve) stenosis (principal); Z01.810 Encounter for preprocedural cardiovascular examination
CPT/HCPCS: 93010; 99205

== ENCOUNTER → 2025-05-08 14:02 | Outpatient (BNVA) | payer BC, SELFPAY | PROVIDERS: PCP Internal Medicine; Visit Provider Internal Medicine | DX: Z01.810 Encounter for preprocedural cardiovascular examination (principal); I49.3 Ventricular premature depolarization; I35.0 Nonrheumatic aortic (valve) stenosis; M17.12 Unilateral primary osteoarthritis, left knee | CPT/HCPCS: 93005 ==

== ENCOUNTER → 2025-05-27 23:59 | Outpatient (BNV) | payer BC, SELFPAY | PROVIDERS: PCP Internal Medicine; Visit Provider Internal Medicine Cardiovascular Disease | DX: I50.30 Unspecified diastolic (congestive) heart failure (principal) | CPT/HCPCS: 93460; 99152 ==

== ENCOUNTER 2025-06-04 08:56 | Outpatient (AMB) | payer BC, SELFPAY ==
--- NOTE | 2025-06-04 09:01 | MHC.PC.OV ---
Vital Signs 06/04/25 09:02 Height 5 ft 4 in Weight 246 lb 4.101 oz BMI 42.3 BP 120/90 H Blood Pressure Location Lt brachial Position Sitting Pulse 85 Pulse Source Pulse Oximeter Temp 97.3 F Temp Source Temporal Artery Scan Pulse Oximetry (%) 100 Oxygen Delivery Method Room Air Intake Visit Reasons: follow up Intake Note: Patient is here to follow up on OA. Relay Associate Required: No English Division Chair: Present Accompanied by: Sister kiersten Allergies No Known Allergies Allergy (Verified 06/04/25 09:02) Tobacco use date assessed: 06/04/25 Fall risk assessment: No Falls in past year Last assessed Fall Risk: 06/04/25 Dental Screening Dental Screen Date: 05/01/25 [facility] Medical History (Updated 05/15/25 @ 17:15 by Hellen Molina MD) Osteoarthritis of left knee Aortic stenosis No pertinent past medical history Surgical History (Updated 06/04/25 @ 09:07 by MILANA Briones) History of cardiac catheterization History of cholecystectomy Family History Mother No problems noted. Father Colon cancer Social History Housing: House Alcohol intake: never Patient Tobacco Use Status: Never used Tobacco e-Cigarette/Vaping Use: Never Used Second Hand Smoke Exposure: No service: No Current occupational status: retired Cognitive needs: No Hearing needs: No Vision needs: Yes (Glasses) Questionnaire Thrive Questionnaire Date Thrive assessed: 05/01/25 I am a: Patient What is your living situation today?: I have a steady place to live Within the past 12 months, did the food you bought not last and you didn't have the money to get more?: Never true Within the past 12 months, did you worry whether your food would run out before you got money to buy more?: Never true Do you have trouble paying for medicines?: No Do you have trouble getting transportation to medical appointments?: No Do you have trouble paying your heating and electricity bill?: No Do you have trouble taking care of your child, family member or friend?: No Do you have trouble with day-to-day activities such as bathing, preparing meals, shopping, managing finances, etc.?: No Are you currently unemployed and looking for a job?: No Are you interested in more education?: No Please select the resources that you would like help with: None Currently or been in a relationship where the following occur: I choose not to answer THRIVE Score: 0 PENNY-7 AMB Questionnaire PENNY-7 Date PENNY - 7 assessed: 05/01/25 Source: Developed by Drs. Polo Nieto, Tere Brantley, Gabriel Lu and colleagues, with an educational sincere from [employer]. Physical exam (Primary Care) Vital Signs: Last Vital Signs Temp 97.3 F 06/04/25 09:02 Pulse 85 06/04/25 09:02 BP 120/90 H 06/04/25 09:02 Pulse Ox 100 06/04/25 09:02 Oxygen Delivery Method Room Air 06/04/25 09:02 BMI result Body Mass Index 42.3 Tobacco/Smoking Status: Tobacco use Status Tobacco use date assessed 06/04/25 06/04/25 09:09 Patient Tobacco Use Status Never used Tobacco 06/04/25 09:09 e-Cigarette/Vaping Use Never Used 06/04/25 09:09 Thrive Assessment: Date of Thrive Assessment Date Thrive assessed 05/01/25 06/04/25 09:09 Currently or been in a relationship where the following occur: I choose not to answer Coding Level of Care Code Est Pt Level 4 (55007) Complex EM visit Add On G2211 Diagnoses Aortic stenosis I35.0 Assessment & Plan Assessment & Plan (1) Aortic stenosis: Code(s): I35.0 - Nonrheumatic aortic (valve) stenosis Category: Medical Plan: History of Present Illness - The patient is a 75-year-old female presenting with aortic stenosis and memory loss. - Aortic stenosis was diagnosed by a account solutions analyst, and a transcatheter aortic valve replacement (TAVR) is planned. - The patient experiences memory loss, which has worsened over the past month, potentially related to her cardiac condition. - Routine blood work showed no other causes for memory loss, and a CT scan of the head was considered to rule out other issues. - The patient is awaiting scheduling for the TAVR procedure, with a consult planned with Dr. Peck. - Left knee osteoarthritis requires surgical intervention, but this is postponed until after cardiac surgery. - Preventative care measures include recommendations for COVID-19 and influenza vaccinations. Social History Review of Systems - Neurological: Reports memory loss, with fluctuations in severity. Physical Exam General: Cooperative and healthy appearing Nutritional Appearance: Well nourished Orientation/consciousness: Patient oriented x3 Limitations: No limitations Head: Normal to inspection General: Appearance normal, both eyes and all related structures Neck: Normal visual inspection Chest: Normal palpation of entire chest wall Respiratory: N ormal respiratory effort Neurology: Patient oriented x3, but has some short-term memory issues, potentially related to heart condition. Results - Imaging: CT scan of the head was considered to rule out other causes of memory loss. Plan - Proceed with the TAVR procedure as planned, with a consult scheduled with Dr. Peck. - Monitor memory loss, considering its potential link to aortic stenosis, and follow up with a CT scan if necessary. - Postpone left knee replacement surgery until after cardiac intervention is completed. - Administer COVID-19 and influenza vaccinations as part of preventative care. Discussion Notes I discussed with the patient the need for a transcatheter aortic valve replacement (TAVR) due to aortic stenosis and its potential impact on memory loss. We reviewed the risks associated with the procedure, including the possibility of stroke. I advised postponing the left knee replacement until after the cardiac procedure. We also discussed the importance of receiving COVID-19 and influenza vaccinations as part of preventative care. Patient Instructions - Attend the scheduled consult with Dr. Peck for the TAVR procedure. - Monitor memory changes and report any significant worsening. - Postpone any elective surgeries, such as the knee replacement, until after the cardiac procedure. - Receive COVID-19 and influenza vaccinations as recommended. Orders: Orders Basic Metabolic Panel Today I35.0 - Nonrheumatic aortic (valve) stenosis Complete Blood Count no Diff Today I35.0 - Nonrheumatic aortic (valve) stenosis Lipid Panel Today I35.0 - Nonrheumatic aortic (valve) stenosis Liver Panel Today I35.0 - Nonrheumatic aortic (valve) stenosis UA and rflx microscopic Today I35.0 - Nonrheumatic aortic (valve) stenosis Thyroid Stimulating Hormone Today I35.0 - Nonrheumatic aortic (valve) stenosis
[2025-06-04 09:02] VITALS: BP 120/90; PULSE 85; TEMP 36.3; O2SAT 100; BMI 42.3
== END 2025-06-04 09:48 | disposition home or self-care (01) ==
LOC: HO.HMCH 08:58
PROVIDERS: PCP Internal Medicine; Visit Provider Internal Medicine
DX: I35.0 Nonrheumatic aortic (valve) stenosis (principal)

== ENCOUNTER 2025-06-04 08:56 | Outpatient (REF) | payer BC, SELFPAY ==
[2025-06-04 10:46] LABS: Hematocrit 43.9 % (37.0-47.0); Hemoglobin 14.0 g/dl (12.0-16.0); Mean Corpuscular HGB Conc 31.9 g/dl (31.0-35.0); Mean Corpuscular Hemoglobin 31.4 pg (27.0-33.0); Mean Corpuscular Volume 98.4 fL (80.0-98.0); NRBC Abs Auto 0.000 X10*3/uL (0.0-0.012); NRBC Pct Auto 0.0 /100WBC (0.0-0.2); Platelet Count 223 X10*3/uL (160-400); Red Blood Count 4.46 X10*6/uL (4.20-5.50); White Blood Count 8.0 X10*3/uL (4.8-10.8)
[2025-06-04 11:04] LABS: Appearance Urine Clear; Glucose Urine UA Negative (Negative); PH 7.0 (5.0-9.0); Specific Gravity - Urine 1.015 (1.005-1.025); UMIC TRIGGER UA YES
[2025-06-04 11:15] LABS: Alanine Aminotransferase 19 U/L (0-31); Albumin Level 4.5 g/dL (3.5-5.0); Alkaline Phosphatase 122 U/L (39-117); Anion Gap 11 (12-20); Aspartate Amino Transferase 37 U/L (5-31); Blood Urea Nitrogen 19 mg/dL (9-16); Calcium 9.7 mg/dL (8.4-10.2); Carbon Dioxide 31 mmol/L (22-29); Chloride 104 mmol/L (96-108); Cholesterol 205 mg/dL (<200); Estimated Glomerular Filt Rate > 60; HDL Cholesterol 70 mg/dL (>40); Potassium 3.9 mmol/L (3.3-5.1); Sodium 142 mmol/L (135-145); Total Protein 7.7 g/dL (6.5-8.0); Triglycerides 72 mg/dL (<150)
[2025-06-04 11:32] LABS: Thyroid Stimulating Hormone 4.52 uIU/mL (0.32-4.0)
== END 2025-06-04 08:57 | disposition home or self-care (01) ==
LOC: HO.LAB 08:56
PROVIDERS: PCP Internal Medicine; Visit Provider Internal Medicine
DX: I35.0 Nonrheumatic aortic (valve) stenosis (principal); R41.3 Other amnesia; E53.8 Deficiency of other specified B group vitamins; M17.12 Unilateral primary osteoarthritis, left knee; Z95.2 Presence of prosthetic heart valve
CPT/HCPCS: 36415; 80048; 80061; 80076; 81001; 81003; 84443; 85027

== ENCOUNTER 2025-06-09 09:56 | Outpatient (AMB) | payer BC, SELFPAY ==
[2025-06-09 10:43] VITALS: BP 140/70; PULSE 78; BMI 42.4
--- NOTE | 2025-06-09 10:43 | MHC.OFFVIS ---
Vital Signs 06/09/25 10:43 Height 5 ft 4 in Weight 246 lb 14.684 oz BMI 42.4 BP 140/70 H Blood Pressure Location Lt brachial Position Sitting Pulse 78 Pulse Source Monitor Intake Visit Reasons: TAVR Consuklt Intake Note: TAVR Consult Network And Threat Support Specialist Required: No Senior Analysis Specialist: Senior Analysis Specialist Present Accompanied by: Self / Same As Patient Allergies No Known Allergies Allergy (Verified 06/04/25 09:02) Medication List - Last Reconciled 06/10/25 by Alexis Bailey MD aspirin 81 mg PO DAILY metoprolol succinate ER 25 mg PO DAILY HPI Comments Details: Pleasant 75 year lady who is here for TAVR consult. She recently started workup for left knee arthroplasty and echocardiography was done for a heart murmur. Echocardiography raise concern for severe aortic valve stenosis. She has been experiencing shortness of breath with activities. No orthopnea or PND are clear heart failure symptoms otherwise. Subsequent to that she was seen in the office and was referred for cardiac catheterization. Cardiac catheterization showed no significant coronary disease but her invasive assessment confirmed severe aortic valve stenosis. She had a TAVR protocol CT performed and we discussed her in the heart team meeting. Our plan is to implant a 26 mm Evolut valve. She has been doing fine since the cardiac catheterization. She is denying any chest discomfort. She does have dyspnea with activities and is limited due to left knee arthritis. ON LICENSE OF [facility] Medical History Osteoarthritis of left knee Aortic stenosis No pertinent past medical history Surgical History History of cardiac catheterization History of cholecystectomy Family History Mother No problems noted. Father Colon cancer Social History Housing: House Alcohol intake: never Patient Tobacco Use Status: Never used Tobacco e-Cigarette/Vaping Use: Never Used Second Hand Smoke Exposure: No service: No Current occupational status: retired Cognitive needs: No Hearing needs: No Vision needs: Yes (Glasses) Review of Systems Const Denies chills, Denies fatigue, Denies fever(s), Denies frequent falls, Denies weakness, Denies weight gain and Denies weight loss ENT Denies dizziness Card Denies chest pain, Denies leg edema, Denies lightheadedness, Denies palpitations, Denies dyspnea and Denies dyspnea on exertion Resp Denies cough, Denies dyspnea and Denies dyspnea on exertion GI Denies hematochezia Musc Denies abnormal gait, Denies muscle weakness, Denies numbness, Denies radiating pain into limb and Denies tingling Neuro Denies abnormal gait, Denies dizziness, Denies frequent falls, Denies numbness, Denies tingling and Denies weakness Endo Denies fatigue and Denies palpitations Physical Exam Vital Signs: Last Vital Signs Pulse 78 06/09/25 10:43 BP 140/70 H 06/09/25 10:43 BMI result Body Mass Index 42.4 GENERAL APPEARANCE: in no acute distress, pleasant. NECK: no carotid bruit, no jugular venous distention. SKIN: no suspicious lesions, warm and dry. HEART: Ejection systolic murmur aortic area with absent 2nd heart sound, regular rate and rhythm. LUNGS: clear to auscultation bilaterally. ABDOMEN: soft, nontender. EXTREMITIES: + edema. PERIPHERAL PULSES: equal. NEUROLOGIC: No gross deficits, AAO X 3 Office Procedures EKG Details: Sinus rhythm 78 beats per minute, normal axis, normal ECG, QTC 399 milliseconds. [id number]-Grzeijpdhyzfihhid, Complete Assessment & Plan Assessment & Plan (1) Aortic stenosis: Code(s): I35.0 - Nonrheumatic aortic (valve) stenosis Category: Medical Plan Pleasant 75 year lady who is here for management of aortic valve stenosis. She had a TAVR protocol CT performed and she has seen Cardiothoracic surgery. We discussed the case in heart team meeting and our plan is to proceed with TAVR. She will be scheduled for that soon. We discussed pros and cons of the procedure in detail. The patient and daughter understand the pros and cons and agree with proceeding with TAVR. She will continue on medications as before. She needs knee surgery which I think should be planned few weeks after the TAVR. Thank you for allowing me to participate in the care of your patient. Please feel free to contact me if you have any questions. Coding Level of Care Code New Pt Level 4 (72782) Diagnoses Aortic stenosis I35.0 CPT Codes EKG - CPT: 52095-Xynogzepkbzyzozxo, Complete ([id number])
== END 2025-06-09 11:32 | disposition home or self-care (01) ==
LOC: HO.HCS 09:57
PROVIDERS: PCP Internal Medicine; Visit Provider Internal Medicine Cardiovascular Disease
DX: I35.0 Nonrheumatic aortic (valve) stenosis (principal)
CPT/HCPCS: 99214

== ENCOUNTER → 2025-06-09 09:56 | Outpatient (BNVA) | payer BC, SELFPAY | PROVIDERS: PCP Internal Medicine; Visit Provider Internal Medicine Cardiovascular Disease | DX: I35.0 Nonrheumatic aortic (valve) stenosis (principal) | CPT/HCPCS: 93005 ==

== ENCOUNTER 2025-06-30 13:20 | Outpatient (AMB) | payer BC, SELFPAY ==
--- NOTE | 2025-06-30 13:27 | MHC.OFFVIS ---
Vital Signs 06/30/25 13:31 Height 5 ft 4 in Weight 246 lb BMI 42.2 BP 130/82 Blood Pressure Location Lt brachial Position Sitting Pulse 93 Pulse Source Pulse Oximeter Intake Visit Reasons: 2wk wound check f/up/tavr 06/19 Transit Coach Operator Required: No Allergies No Known Allergies Allergy (Verified 06/30/25 13:32) Medication List - Last Reconciled 06/30/25 by Darshana Seals, MARY-C aspirin 81 mg PO DAILY levothyroxine (Synthroid) 25 mcg PO DAILY metoprolol succinate ER 25 mg PO DAILY HPI HPI 2wk wound check f/up/tavr 06/19: Details: The patient is a 75 year old individual presenting for a follow-up visit and wound check 10 days after a transcatheter aortic valve replacement (TAVR) procedure. The patient has a history of moderate to severe aortic stenosis and underwent a diagnostic cardiac catheterization on 05/27/2025, which showed normal coronary arteries, an aortic valve mean gradient of 49 mmHg, and an aortic valve area of 0.85 cm?. Prior to the TAVR, which was performed on 06/19/2025, the patient experienced dizziness and shortness of breath, but no chest pain. Since the procedure, dizziness and breathing have improved, but the patient reports a new symptom of feeling chilly. The groin access sites are described as fine, with resolving ecchymosis but no pain. The patient's current medications include aspirin, metoprolol, and a new prescription for levothyroxine. The levothyroxine was started for hypothyroidism after lab results showed slightly elevated thyroid levels. The patient also has a history of venous congestion in the lower legs and reports needing a knee replacement, which has been delayed due to the cardiac condition. [facility] Medical History (Updated 06/30/25 @ 18:27 by Darshana Seals, AMRY-C) Osteoarthritis of left knee Aortic stenosis No pertinent past medical history Surgical History (Updated 06/30/25 @ 18:30 by Darshana Seals NP-C) History of cardiac catheterization History of cholecystectomy Family History Mother No problems noted. Father Colon cancer Social History Housing: House Alcohol intake: never Patient Tobacco Use Status: Never used Tobacco e-Cigarette/Vaping Use: Never Used Second Hand Smoke Exposure: No service: No Current occupational status: retired Cognitive needs: No Hearing needs: No Vision needs: Yes (Glasses) Review of Systems Const All systems reviewed & are unremarkable except as noted in HPI and below ENT Denies dizziness Card Denies chest pain, Denies chest pain at rest, Denies chest pain with activity, Denies rapid heart rate, Denies pedal edema, Denies edema, Denies leg edema, Denies lightheadedness, Denies palpitations, Denies dyspnea, Denies dyspnea on exertion and Denies orthopnea Resp Denies cough, Denies dyspnea and Denies dyspnea on exertion GI Denies hematochezia and Denies change in stool character Musc Denies abnormal gait, Denies limited range of motion, Denies muscle cramps, Denies muscle weakness, Denies numbness, Denies radiating pain into limb, Denies stiffness and Denies tingling Neuro Denies abnormal gait, Denies dizziness, Denies numbness and Denies tingling Endo Denies palpitations Physical Exam Vital Signs: Last Vital Signs Pulse 93 06/30/25 13:31 BP 130/82 06/30/25 13:31 BMI result Body Mass Index 42.2 Const General: cooperative, healthy appearing, comfortable and no acute distress Orientation/consciousness: patient oriented x3 Neck Neck: Yes normal visual inspection Resp Effort & Inspection: normal respiratory effort Auscultation: clear to auscultation bilaterally, no rales, no rhonchi and no wheezes Cardio Jugular venous distension: no JVD Rate: regular rate Rhythm: regular rhythm Heart sounds: S1 normal heart sound present, S2 normal heart sound present, no gallops, no murmurs and no rubs Neuro General: patient oriented x3 Extrem Other: Tight lower extremity edema, ankles to mid calves Bilateral groin sites checked, resolving ecchymosis on the right, easily palpable femoral pulses bilaterally, areas nontender with no signs of infection Psych Appearance: grossly normal Mental Status: mental status grossly normal Speech and movement: Normal speech and movement present Assessment & Plan Assessment & Plan (1) Non-rheumatic aortic stenosis: Code(s): I35.0 - Nonrheumatic aortic (valve) stenosis Category: Medical Plan: Symptomatic severe aortic stenosis. Recent cardiac catheterization showed normal coronary arteries. She was evaluated by the heart team and then proceeded with TAVR procedure 06/19/2025. [facility] echo 06/19/2025 shows bioprosthetic valve in the aortic position, no Doppler evidence of central or perivalvular regurgitation, mean gradient 9 mm of Hg. She has done well since that time and reports improved breathing and resolution of lightheadedness. Groin sites healing well. Plan for echocardiogram next month and cardiology follow-up in August. (2) S/P TAVR (transcatheter aortic valve replacement): Comment: 06/19/2025 Code(s): Z95.2 - Presence of prosthetic heart valve Category: Surgical Plan: As above (3) History of cardiac catheterization: Comment: 05/28/25 normal coronary arteries Code(s): Z98.890 - Other specified postprocedural states Category: Surgical (4) Hospital discharge follow-up: Code(s): Z51.89 - Encounter for other specified aftercare Category: Medical Plan: Discharge summary and operative notes reviewed Plan I discussed with the patient and the patient's daughter that the patient is recovering well from the TAVR procedure performed 10 days ago. I confirmed that pre-procedural symptoms of dizziness and shortness of breath have resolved and that the groin access sites are healing well without pain or discomfort. We reviewed the new symptom of feeling chilly, and I noted it could be a side effect of medication. I explained that the chronic swelling in the legs is likely due to venous insufficiency, a separate issue from the heart valve. I clarified that while better overall circulation might offer some improvement, the underlying venous problem will remain, and that increased mobility after a future knee surgery would be beneficial. I lifted the post-procedure lifting restrictions, advising activity as tolerated and to listen to your body. I informed the patient of the plan to schedule a follow-up echocardiogram and another clinic visit. I instructed the patient to contact us if symptoms such as shortness of breath suddenly return. The patient was cleared to begin the cardiac rehab program and to proceed with scheduling a consultation with an orthopedic surgeon for the knee. Patient Instructions: - You are recovering well from your heart valve procedure. - Please call us if your shortness of breath or dizziness suddenly comes back. - We will schedule another ultrasound of your heart (echocardiogram) and a follow-up appointment. - You can start your cardiac rehab program. - You may now make an appointment with your orthopedic doctor to discuss knee surgery. - Continue to take your medications as prescribed, including aspirin, metoprolol, and levothyroxine. Patient was informed and verbally consented to the use of an ambient scribe for clinic note documentation during this visit. Visit time spent on chart review, interview, assessment, orders, documentation. Coding Level of Care Code Est Pt Level 4 (90093) Complex visit Add On G2211 Diagnoses Non-rheumatic aortic stenosis I35.0 S/P TAVR (transcatheter aortic valve replacement) Z95.2 History of cardiac catheterization Z98.890 Hospital discharge follow-up Z51.89 Time Spent (min) 32
[2025-06-30 13:31] VITALS: BP 130/82; PULSE 93; BMI 42.2
== END 2025-06-30 14:15 | disposition home or self-care (01) ==
LOC: HO.HCS 13:21
PROVIDERS: PCP Internal Medicine; Visit Provider Nurse Practitioner Family
DX: I35.0 Nonrheumatic aortic (valve) stenosis (principal); Z95.2 Presence of prosthetic heart valve; Z98.890 Other specified postprocedural states; Z51.89 Encounter for other specified aftercare
CPT/HCPCS: 99214

== ENCOUNTER → 2025-07-24 08:47 | Outpatient (REF) | payer BC, SELFPAY | LOC: HO.CARD 08:47 | PROVIDERS: PCP Internal Medicine; Visit Provider Internal Medicine Cardiovascular Disease | DX: Z95.2 Presence of prosthetic heart valve (principal) | CPT/HCPCS: 93306 ==

== ENCOUNTER → 2025-07-24 09:02 | Outpatient (BNV) | payer BC, SELFPAY | PROVIDERS: PCP Internal Medicine; Visit Provider Internal Medicine Cardiovascular Disease | DX: I51.7 Cardiomegaly (principal); Z95.2 Presence of prosthetic heart valve | CPT/HCPCS: 93306 ==